=== PATIENT | female | born 1995 | race Caucasian/White ===

== ENCOUNTER 2016-05-17 21:01 | Inpatient (IN) | payer OTHER ==
[~2016-05-17] VITALS: Ht 149.9 cm; Wt 60.3 kg
[2016-05-17] MEDS ORDERED: MORPHINE SULFATE 4 MG/ML SYRINGE IVP ONE ×2 (21:30→23:15)
[2016-05-17] MEDS ORDERED: SODIUM CHLORIDE 0.9% 1,000 ML IV ONE (21:30)
[2016-05-17] MEDS ORDERED: ONDANSETRON HCL 4 MG/2 ML VIAL IVP ONE (21:30)
[2016-05-17] MEDS ORDERED: IOVERSOL 350 MG/ML 100 ML VIAL ONE (21:40)
[2016-05-17] MEDS ORDERED: SODIUM CHLORIDE 0.9% 100 ML ONE (21:40)
[2016-05-17 22:02] LABS: HEMATOCRIT 39.5 % (36-46); HEMOGLOBIN 13.4 g/dL (12.0-16.0); MEAN CORPUSCULAR HEMOGLOBIN 29.1 pg (26.0-34.0); MEAN CORPUSCULAR VOLUME 86 fL (80-100); PLATELET COUNT (AUTO) 257 K/uL (150-450); RED BLOOD CELL COUNT(AUTO) 4.61 MIL/uL (4.00-5.20); RED CELL DISTRIBUTION WIDTH 13.6 % (11.5-14.5); WHITE BLOOD COUNT (AUTO) 11.2 K/uL (4.5-11.0)
[2016-05-17 22:10] LABS: ANION GAP 12 mmol/L (8-16); CALCIUM, TOTAL 9.2 mg/dL (8.8-10.5); CARBON DIOXIDE 26 mmol/L (22-29); CHLORIDE 96 mmol/L (98-107); CREATININE 0.64 mg/dL (0.60-1.30); GLOMERULAR FILTR. RATE CALC > 60 mL/min (>60); POTASSIUM 3.1 mmol/L (3.5-5.1); SODIUM SERUM 134 mmol/L (136-145); UREA NITROGEN, BLOOD 9 mg/dL (7-18)
[2016-05-17 22:16] LABS: ALANINE AMINOTRANSFERASE 29 U/L (12-78); ALBUMIN 3.8 g/dL (3.4-5.0); ASPARTATE AMINOTRANSFERASE 17 U/L (15-37); BILIRUBIN,TOTAL 0.6 mg/dL (0.1-1.0); TOTAL PROTEIN, SERUM 7.6 g/dL (6.4-8.2)
[2016-05-17 22:31] LABS: BAND NEUTROPHILS % (MANUAL) 9 % (1-5); LYMPHOCYTES % (MANUAL) 7 % (22-44); TOTAL CELLS COUNTED 100
[2016-05-17 22:45] LABS: APPEARANCE,URINE CLEAR (CLEAR); GLUCOSE, URINE (UA) NEGATIVE (NEGATIVE); KETONES,URINE NEGATIVE (NEGATIVE); LEUKOCYTE ESTERASE ,URINE NEGATIVE (NEGATIVE); OCCULT BLOOD,URINE SMALL (NEGATIVE); PROTEIN,URINE NEGATIVE (NEGATIVE)
[2016-05-17 22:51] LABS: SQUAMOUS EPITHELIAL CELL,UR Moderate /LPF (None Seen)
[2016-05-17 22:54] LABS: RBC,URINE 0-2 /HPF (0-2)
[2016-05-18] MEDS ORDERED: AMPICILLIN SODIUM/SULBACTAM NA 3 GM in SODIUM CHLORIDE 0.9% 100 ML IV ONE ×2
[2016-05-18] MEDS ORDERED: ONDANSETRON HCL 4 MG/2 ML VIAL IVP ONE (00:22)
[2016-05-18] MEDS ORDERED: GLYCOPYRROLATE 0.2 MG/ML VIAL IM ONE (00:22)
[2016-05-18] MEDS ORDERED: METOCLOPRAMIDE HCL 5 MG/ML 2 ML VIAL IVP ONE (00:22)
[2016-05-18] MEDS ORDERED: ROCURONIUM BROMIDE 10 MG/ML 5 ML VIAL IVP ONE (00:22)
[2016-05-18] MEDS ORDERED: NEOSTIGMINE METHYLSULFATE 1 MG/ML 10 ML VIAL IVP ONE (00:22)
[2016-05-18] MEDS ORDERED: FentaNYL CITRATE-PF 100 MCG/2 ML VIAL IVP ONE (00:22)
[2016-05-18] MEDS ORDERED: LIDOCAINE HCL/PF 2% 5 ML VIAL IM ONE (00:22)
[2016-05-18] MEDS ORDERED: KETOROLAC TROMETHAMINE 60 MG/2 ML VIAL IM ONE (00:22)
[2016-05-18] MEDS ORDERED: PHENYLEPHRINE HCL 10 MG/ML VIAL IVP ONE (00:22)
[2016-05-18] MEDS ORDERED: MIDAZOLAM HCL 2 MG/2 ML VIAL IVP ONE (00:22)
[2016-05-18] MEDS ORDERED: DEXAMETHASONE SOD PHOS 4 MG/ML VIAL IVP ONE (00:22)
[2016-05-18] MEDS ORDERED: MORPHINE SULFATE 4 MG/ML SYRINGE IVP ONE (04:45)
[2016-05-18] MEDS ORDERED: ONDANSETRON HCL 4 MG/2 ML VIAL IVP PRN ×2 (06:30→10:15)
[2016-05-18] MEDS ORDERED: SODIUM CHLORIDE 0.9% 1,000 ML IV ONE ×2 (06:30→15:47)
[2016-05-18] MEDS: MORPHINE SULFATE 4 MG/ML SYRINGE IVP PRN ×2 (09:10→13:03)
[2016-05-18] MEDS ORDERED: IPRATROPIUM BROMIDE 0.5 MG/2.5 ML NEB SOLUTION NEB PRN (10:15)
[2016-05-18] MEDS ORDERED: ALBUTEROL SULFATE 2.5 MG/0.5 ML NEB SOLUTION NEB PRN (10:15)
[2016-05-18] MEDS ORDERED: MORPHINE SULFATE 4 MG/ML SYRINGE IVP PRN (10:15)
[2016-05-18] MEDS ORDERED: ZOLPIDEM TARTRATE 5 MG TABLET PO PRN (10:15)
[2016-05-18] MEDS ORDERED: HYDROCODONE/ACETAMINOPHEN 5-325 MG TABLET PO PRN (10:15)
[2016-05-18] MEDS ORDERED: MAGNESIUM HYDROXIDE SUSPENSION 30 ML UDCUP PO PRN (10:15)
[2016-05-18] MEDS ORDERED: ACETAMINOPHEN 325 MG TABLET PO PRN (10:15)
[2016-05-18] MEDS ORDERED: BISACODYL 10 MG RECTAL RECTAL SUPPOSITORY PR PRN (10:15)
[2016-05-18] MEDS ORDERED: RINGERS SOLUTION,LACTATED 1,000 ML IV ONE ×3 (14:25→16:04)
[2016-05-18] MEDS ORDERED: MEPERIDINE-PF 25 MG/ML SYRINGE IVP PRN (15:15)
[2016-05-18] MEDS ORDERED: FentaNYL CITRATE-PF 100 MCG/2 ML VIAL IVP PRN (15:15)
[2016-05-18] MEDS ORDERED: HYDROmorphone 2 MG/ML SYRINGE IVP PRN (15:15)
[2016-05-18] MEDS ORDERED: CefoTEtan DISOD 2 GM/DEXTROSE 50 ML IV ONE (15:25)
[2016-05-18] MEDS: BUPIVACAINE 0.25%/EPI 1:200,000/PF 10 ML VIAL ONE ×2 (15:40→15:49)
[2016-05-18] MEDS ORDERED: SODIUM CL IRRIG SOLN BAG 0 ML IRRIG ONE (15:46)
[2016-05-18] MEDS: POTASSIUM CHL 20 MEQ/D5-0.45NS 1,000 ML IV SCH (18:02)
[2016-05-18] MEDS: HEPARIN SODIUM,PORCINE 5,000 UNITS/ML VIAL SQ SCH (18:03)
[2016-05-18 19:50] VITALS: BP 97/55
[2016-05-18] MEDS ORDERED: OXYGEN THERAPY IH SCH (20:00)
[2016-05-18] MEDS: CefoTEtan DISOD 1 GM/DEXTROSE 50 ML IV SCH (20:09)
[2016-05-18] MEDS: DOCUSATE SODIUM 100 MG CAPSULE PO SCH (20:09)
[2016-05-18] MEDS ORDERED: DOCUSATE SODIUM 100 MG CAPSULE PO SCH (21:00)
[2016-05-18 23:30] VITALS: BP 90/57
[2016-05-19] MEDS: HEPARIN SODIUM,PORCINE 5,000 UNITS/ML VIAL SQ SCH ×4 (02:36→23:23)
[2016-05-19] MEDS: POTASSIUM CHL 20 MEQ/D5-0.45NS 1,000 ML IV SCH ×3 (02:36→21:21)
[2016-05-19] MEDS: HYDROCODONE/ACETAMINOPHEN 5-325 MG TABLET PO PRN ×3 (02:41→22:15)
[2016-05-19 05:09] VITALS: BP 92/59
[2016-05-19 07:22] VITALS: BP 92/57
[2016-05-19] MEDS: PANTOPRAZOLE SODIUM 40 MG/VIAL IVP SCH (07:57)
[2016-05-19] MEDS: DOCUSATE SODIUM 100 MG CAPSULE PO SCH ×2 (07:58→20:15)
[2016-05-19 08:21] LABS: HEMOGLOBIN 11.4 g/dL (12.0-16.0); MEAN CORPUSCULAR HGB CONC 34.6 G/dL (31.0-37.0); MEAN CORPUSCULAR VOLUME 87 fL (80-100); PLATELET COUNT (AUTO) 198 K/uL (150-450); RED CELL DISTRIBUTION WIDTH 13.9 % (11.5-14.5); WHITE BLOOD COUNT (AUTO) 9.3 K/uL (4.5-11.0)
[2016-05-19 08:33] LABS: ANION GAP 1 mmol/L (8-16); CALCIUM, TOTAL 8.3 mg/dL (8.8-10.5); CARBON DIOXIDE 32 mmol/L (22-29); CHLORIDE 103 mmol/L (98-107); CREATININE 0.67 mg/dL (0.60-1.30); GLOMERULAR FILTR. RATE CALC > 60 mL/min (>60); POTASSIUM 3.5 mmol/L (3.5-5.1); SODIUM SERUM 136 mmol/L (136-145); UREA NITROGEN, BLOOD 5 mg/dL (7-18)
[2016-05-19 08:52] LABS: BAND NEUTROPHILS % (MANUAL) 14 % (1-5); LYMPHOCYTES % (MANUAL) 7 % (22-44); TOTAL CELLS COUNTED 100
[2016-05-19] MEDS ORDERED: PANTOPRAZOLE SODIUM 40 MG/VIAL IVP SCH (09:00)
[2016-05-19 11:20] VITALS: BP 122/76
[2016-05-19] MEDS: MORPHINE SULFATE 4 MG/ML SYRINGE IVP PRN ×4 (11:32→23:23)
[2016-05-19] MEDS: CefoTEtan DISOD 1 GM/DEXTROSE 50 ML IV SCH ×2 (11:33→19:58)
[2016-05-19 15:25] VITALS: BP 122/79
[2016-05-19 19:40] VITALS: BP 113/74
[2016-05-19] MEDS: ONDANSETRON HCL 4 MG/2 ML VIAL IVP PRN (19:56)
[2016-05-19 23:36] VITALS: BP 114/77
[2016-05-20] VITALS (7 sets, daily range): BP systolic 113–151; BP diastolic 71–93
[2016-05-20] MEDS: MORPHINE SULFATE 4 MG/ML SYRINGE IVP PRN ×5 (05:42→20:12)
[2016-05-20] MEDS: CefoTEtan DISOD 1 GM/DEXTROSE 50 ML IV SCH ×2 (08:16→20:20)
[2016-05-20] MEDS: PANTOPRAZOLE SODIUM 40 MG/VIAL IVP SCH (08:17)
[2016-05-20] MEDS: DOCUSATE SODIUM 100 MG CAPSULE PO SCH ×2 (08:17→21:55)
[2016-05-20] MEDS: HEPARIN SODIUM,PORCINE 5,000 UNITS/ML VIAL SQ SCH ×3 (08:17→23:20)
[2016-05-20] MEDS: ONDANSETRON HCL 4 MG/2 ML VIAL IVP PRN ×2 (08:19→20:12)
[2016-05-20 09:00] LABS: EOSINOPHILS # (AUTO) 0.04 K/uL (0.00-0.70); HEMATOCRIT 34.5 % (36-46); HEMOGLOBIN 12.1 g/dL (12.0-16.0); LYMPHOCYTES # (AUTO) 0.8 K/uL (1.0-4.8); LYMPHOCYTES % (AUTO) 8.9 % (22.0-44.0); MEAN CORPUSCULAR HEMOGLOBIN 29.9 pg (26.0-34.0); MEAN CORPUSCULAR VOLUME 85 fL (80-100); MONOCYTES # (AUTO) 0.5 K/uL (0.1-1.0); MONOCYTES % (AUTO) 5.8 % (2.0-9.0); NEUTROPHILS # (AUTO) 7.7 K/uL (1.8-7.7); NEUTROPHILS % (AUTO) 84.9 % (40.0-70.0); PLATELET COUNT (AUTO) 235 K/uL (150-450); RED BLOOD CELL COUNT(AUTO) 4.04 MIL/uL (4.00-5.20); RED CELL DISTRIBUTION WIDTH 13.5 % (11.5-14.5)
[2016-05-20 09:13] LABS: ANION GAP 5 mmol/L (8-16); CALCIUM, TOTAL 8.2 mg/dL (8.8-10.5); CARBON DIOXIDE 28 mmol/L (22-29); CHLORIDE 99 mmol/L (98-107); GLOMERULAR FILTR. RATE CALC > 60 mL/min (>60); POTASSIUM 3.3 mmol/L (3.5-5.1); SODIUM SERUM 132 mmol/L (136-145); UREA NITROGEN, BLOOD 4 mg/dL (7-18)
[2016-05-20] MEDS: POTASSIUM CHL 20 MEQ/D5-0.45NS 1,000 ML IV SCH ×2 (09:56→23:18)
[2016-05-20] MEDS ORDERED: POTASSIUM CHL 10 MEQ/WATER 50 ML IV PRN (11:15)
[2016-05-20] MEDS ORDERED: POTASSIUM CHLORIDE 20 MEQ ER TABLET PO PRN (11:15)
[2016-05-21] MEDS: MORPHINE SULFATE 4 MG/ML SYRINGE IVP PRN ×5 (01:18→19:50)
[2016-05-21 05:01] VITALS: BP 107/77
[2016-05-21] MEDS: ONDANSETRON HCL 4 MG/2 ML VIAL IVP PRN ×2 (06:49→14:31)
[2016-05-21 07:18] VITALS: BP 128/86
[2016-05-21] MEDS: HEPARIN SODIUM,PORCINE 5,000 UNITS/ML VIAL SQ SCH ×3 (08:24→23:58)
[2016-05-21] MEDS: CefoTEtan DISOD 1 GM/DEXTROSE 50 ML IV SCH ×2 (08:24→20:25)
[2016-05-21] MEDS: PANTOPRAZOLE SODIUM 40 MG/VIAL IVP SCH (10:33)
[2016-05-21] MEDS: DOCUSATE SODIUM 100 MG CAPSULE PO SCH ×2 (10:33→20:25)
[2016-05-21] MEDS: POTASSIUM CHL 20 MEQ/D5-0.45NS 1,000 ML IV SCH ×2 (10:38→21:07)
[2016-05-21] MEDS ORDERED: BISACODYL 10 MG RECTAL RECTAL SUPPOSITORY PR ONE (10:45)
[2016-05-21 11:08] VITALS: BP 114/83
[2016-05-21 14:54] VITALS: BP 118/76
[2016-05-21] MEDS: HYDROCODONE/ACETAMINOPHEN 5-325 MG TABLET PO PRN (18:22)
[2016-05-21 19:18] VITALS: BP 132/89
[2016-05-21 23:57] VITALS: BP 111/72
[2016-05-22 04:42] VITALS: BP 115/83
[2016-05-22] MEDS: CefoTEtan DISOD 1 GM/DEXTROSE 50 ML IV SCH ×2 (08:13→20:29)
[2016-05-22] MEDS: DOCUSATE SODIUM 100 MG CAPSULE PO SCH ×2 (08:13→20:29)
[2016-05-22] MEDS: PANTOPRAZOLE SODIUM 40 MG/VIAL IVP SCH (08:13)
[2016-05-22] MEDS: HEPARIN SODIUM,PORCINE 5,000 UNITS/ML VIAL SQ SCH ×3 (08:15→23:53)
[2016-05-22] MEDS: HYDROCODONE/ACETAMINOPHEN 5-325 MG TABLET PO PRN ×4 (08:18→21:21)
[2016-05-22] MEDS: ONDANSETRON HCL 4 MG/2 ML VIAL IVP PRN (08:18)
[2016-05-22] MEDS: POTASSIUM CHL 20 MEQ/D5-0.45NS 1,000 ML IV SCH ×2 (08:18→18:41)
[2016-05-22 08:21] VITALS: BP 136/90
[2016-05-22 11:33] VITALS: BP 129/102
[2016-05-22 15:30] VITALS: BP 123/58
[2016-05-22 19:34] VITALS: BP 124/92
[2016-05-22 23:31] VITALS: BP 114/78
[2016-05-23] MEDS: HYDROCODONE/ACETAMINOPHEN 5-325 MG TABLET PO PRN ×2 (03:55→15:59)
[2016-05-23 04:40] VITALS: BP 127/88
[2016-05-23] MEDS: POTASSIUM CHL 20 MEQ/D5-0.45NS 1,000 ML IV SCH (05:10)
[2016-05-23 07:39] VITALS: BP 129/93
[2016-05-23 07:43] LABS: BASOPHILS % (AUTO) 0.1 % (0.0-2.0); EOSINOPHILS % (AUTO) 1.1 % (1.0-6.0); HEMATOCRIT 36.1 % (36-46); HEMOGLOBIN 12.2 g/dL (12.0-16.0); LYMPHOCYTES # (AUTO) 1.7 K/uL (1.0-4.8); LYMPHOCYTES % (AUTO) 16.9 % (22.0-44.0); MEAN CORPUSCULAR HGB CONC 33.6 G/dL (31.0-37.0); MEAN CORPUSCULAR VOLUME 86 fL (80-100); MONOCYTES # (AUTO) 0.7 K/uL (0.1-1.0); MONOCYTES % (AUTO) 6.7 % (2.0-9.0); NEUTROPHILS # (AUTO) 7.4 K/uL (1.8-7.7); NEUTROPHILS % (AUTO) 75.2 % (40.0-70.0); PLATELET COUNT (AUTO) 337 K/uL (150-450); RED BLOOD CELL COUNT(AUTO) 4.19 MIL/uL (4.00-5.20); RED CELL DISTRIBUTION WIDTH 13.7 % (11.5-14.5); WHITE BLOOD COUNT (AUTO) 9.8 K/uL (4.5-11.0)
[2016-05-23 07:59] LABS: ANION GAP 8 mmol/L (8-16); CALCIUM, TOTAL 8.7 mg/dL (8.8-10.5); CARBON DIOXIDE 27 mmol/L (22-29); CHLORIDE 100 mmol/L (98-107); CREATININE 0.67 mg/dL (0.60-1.30); GLOMERULAR FILTR. RATE CALC > 60 mL/min (>60); POTASSIUM 3.7 mmol/L (3.5-5.1); SODIUM SERUM 135 mmol/L (136-145); UREA NITROGEN, BLOOD 4 mg/dL (7-18)
[2016-05-23 08:05] LABS: ALANINE AMINOTRANSFERASE 20 U/L (12-78); ALBUMIN 2.6 g/dL (3.4-5.0); ASPARTATE AMINOTRANSFERASE 14 U/L (15-37); TOTAL PROTEIN, SERUM 6.5 g/dL (6.4-8.2)
[2016-05-23 08:21] LABS: BILIRUBIN,TOTAL < 0.1 mg/dL (0.1-1.0)
[2016-05-23] MEDS: DOCUSATE SODIUM 100 MG CAPSULE PO SCH (08:29)
[2016-05-23] MEDS: PANTOPRAZOLE SODIUM 40 MG/VIAL IVP SCH (08:29)
[2016-05-23] MEDS: CefoTEtan DISOD 1 GM/DEXTROSE 50 ML IV SCH (08:29)
[2016-05-23] MEDS: HEPARIN SODIUM,PORCINE 5,000 UNITS/ML VIAL SQ SCH ×2 (08:29→15:59)
[2016-05-23 11:58] VITALS: BP 125/95
[2016-05-23 15:46] VITALS: BP 127/93
[2016-05-23] MEDS ORDERED: AMOX1TAB16 PO (18:15)
[2016-05-23] MEDS ORDERED: HYDR-3965 PO ×2 (18:15→18:16)
[2016-05-23] MEDS ORDERED: DSS100 PO (18:16)
== END 2016-05-23 18:50 | disposition home or self-care (01) | DRG 710 ==
LOC: EMS 21:02 → 6N 05-18 08:01
PROVIDERS: ADMIT Hospitalist; ATTEND Hospitalist
PROC: 0DTJ4ZZ Resection of Appendix, Percutaneous Endoscopic Approach (ICD-10-PCS; principal; 2016-05-18 15:40)
DX: A41.9 Sepsis, unspecified organism (principal); K35.2 Acute appendicitis with generalized peritonitis; E87.6 Hypokalemia; R00.0 Tachycardia, unspecified; D64.9 Anemia, unspecified; Z83.3 Family history of diabetes mellitus; K56.7 Ileus, unspecified
CPT/HCPCS: 74177; 84132; 88304; 96361; 96365; 96375; 96376; 99285; C9113; J0295; J1100; J1644; J1885; J2250; J2270; J2370; J2405; J2765; J3010; J3480; J3490; J7030; J7050; J7120

== ENCOUNTER 2017-06-08 01:38 | Emergency (ER) | payer OTHER ==
[~2017-06-08] VITALS: Ht 149.9 cm; Wt 56.8 kg
[~2017-06-08 01:38] MED LIST: AMOX1TAB16 PO; DSS100 PO; HYDR-4061 PO
[2017-06-08 03:19] VITALS: BP 124/77
== END 2017-06-08 03:26 | disposition home or self-care (01) ==
LOC: EMS 01:39
DX: S93.401A Sprain of unspecified ligament of right ankle, initial encounter (principal); W01.0XXA Fall on same level from slipping, tripping and stumbling without subsequent striking against object, initial encounter; Y93.89 Activity, other specified; Y92.89 Other specified places as the place of occurrence of the external cause; Y99.8 Other external cause status
CPT/HCPCS: 29515; 99284

== ENCOUNTER 2017-06-18 23:13 | Emergency (ER) | payer OTHER ==
[~2017-06-18] VITALS: Ht 149.9 cm; Wt 59.1 kg
[2017-06-19 00:07] VITALS: BP 129/99
== END 2017-06-19 00:12 | disposition home or self-care (01) ==
LOC: EMS 23:14
DX: S20.212A Contusion of left front wall of thorax, initial encounter (principal); W18.49XA Other slipping, tripping and stumbling without falling, initial encounter; Y93.39 Activity, other involving climbing, rappelling and jumping off; Y92.89 Other specified places as the place of occurrence of the external cause; Y99.8 Other external cause status
CPT/HCPCS: 71046; 99284

== ENCOUNTER 2018-08-24 13:37 | Emergency (ER) | payer OTHER ==
[~2018-08-24] VITALS: Ht 149.9 cm; Wt 65.9 kg
[2018-08-24] MEDS ORDERED: ACETAMINOPHEN 500 MG TABLET PO ONE (14:30)
[2018-08-24] MEDS ORDERED: BENZOCAINE/MENTHOL LOZENGE PO ONE (14:30)
[2018-08-24 16:10] VITALS: BP 127/83
== END 2018-08-24 16:29 | disposition home or self-care (01) ==
LOC: EMS 13:37
DX: J02.0 Streptococcal pharyngitis (principal); M54.2 Cervicalgia; R07.89 Other chest pain; R06.02 Shortness of breath; R51 Headache
CPT/HCPCS: 87430; 93005

== ENCOUNTER 2021-02-23 10:56 | Emergency (ER) | payer OTHER ==
[~2021-02-23] VITALS: Ht 147.3 cm; Wt 72.7 kg
[2021-02-23] MEDS ORDERED: OXYMETAZOLINE HCL 0.05% 15 ML NASAL SPRAY NASAL ONE (11:45)
[2021-02-23 12:27] VITALS: BP 132/84
== END 2021-02-23 13:41 | disposition home or self-care (01) ==
LOC: EMS 11:00
DX: J01.90 Acute sinusitis, unspecified (principal)
CPT/HCPCS: 99283

== ENCOUNTER 2021-11-13 10:48 | Emergency (ER) | payer OTHER ==
[~2021-11-13] VITALS: Ht 152.4 cm; Wt 77.3 kg
[2021-11-13 11:52] LABS: BASOPHILS % (AUTO) 0.4 % (0.0-2.0); EOSINOPHILS % (AUTO) 1.3 % (1.0-6.0); HEMATOCRIT 38.3 % (36-46); HEMOGLOBIN 12.9 g/dL (12.0-16.0); LYMPHOCYTES # (AUTO) 2.7 K/uL (1.0-4.8); LYMPHOCYTES % (AUTO) 28.8 % (22.0-44.0); MEAN CORPUSCULAR HEMOGLOBIN 28.4 pg (26.0-34.0); MEAN CORPUSCULAR HGB CONC 33.7 G/dL (31.0-37.0); MEAN CORPUSCULAR VOLUME 85 fL (80-100); MONOCYTES # (AUTO) 0.4 K/uL (0.1-1.0); MONOCYTES % (AUTO) 4.6 % (2.0-9.0); NEUTROPHILS # (AUTO) 6.2 K/uL (1.8-7.7); NEUTROPHILS % (AUTO) 64.9 % (40.0-70.0); PLATELET COUNT (AUTO) 266 K/uL (150-450); RED BLOOD CELL COUNT(AUTO) 4.54 MIL/uL (4.00-5.20); RED CELL DISTRIBUTION WIDTH 13.5 % (11.5-14.5)
[2021-11-13 12:00] LABS: ANION GAP 10 mmol/L (8-16); CALCIUM, TOTAL 8.9 mg/dL (8.8-10.5); CARBON DIOXIDE 24 mmol/L (22-29); CHLORIDE 102 mmol/L (98-107); CREATININE 0.57 mg/dL (0.60-1.30); GLUCOSE,RANDOM 95 mg/dL (70-110); SODIUM SERUM 136 mmol/L (136-145); UREA NITROGEN, BLOOD 17 mg/dL (7-18)
[2021-11-13 12:06] LABS: GLOMERULAR FILTR. RATE CALC > 60 mL/min (>60)
[2021-11-13 12:08] LABS: D-DIMER 0.27 mg/L FEU (0.00-0.50); PROTHROMBIN TIME 10.3 SEC (9.4-11.6)
[2021-11-13 12:10] LABS: ALANINE AMINOTRANSFERASE 79 U/L (12-78); ALBUMIN 3.9 g/dL (3.4-5.0); ALKALINE PHOSPHATASE 105 U/L (46-116); ASPARTATE AMINOTRANSFERASE 35 U/L (15-37); BILIRUBIN,TOTAL 0.2 mg/dL (0.1-1.0); TOTAL PROTEIN, SERUM 7.8 g/dL (6.4-8.2)
[2021-11-13 12:26] VITALS: BP 125/85
[2021-11-13 12:26] LABS: COVID AG,FIA SOURCE NASAL SWAB
== END 2021-11-13 13:23 | disposition home or self-care (01) ==
LOC: EMS 10:48
DX: R07.81 Pleurodynia (principal); R09.81 Nasal congestion; J34.89 Other specified disorders of nose and nasal sinuses; R68.83 Chills (without fever); Z98.890 Other specified postprocedural states; Z20.822 Contact with and (suspected) exposure to COVID-19
CPT/HCPCS: 71045; 80053; 84484; 85025; 85379; 85610; 85730; 93005; 99285; 36415-L1; 36415-TC

== ENCOUNTER 2022-08-18 08:12 | Emergency (ER) | payer OTHER ==
[~2022-08-18] VITALS: Ht 154.9 cm; Wt 86.4 kg
[2022-08-18 08:15] VITALS: BP 143/99
[2022-08-18 08:56] LABS: APPEARANCE,URINE CLEAR (CLEAR); BILIRUBIN,URINE NEGATIVE (NEGATIVE); GLUCOSE, URINE (UA) NEGATIVE (NEGATIVE); KETONES,URINE NEGATIVE (NEGATIVE); LEUKOCYTE ESTERASE ,URINE NEGATIVE (NEGATIVE); NITRATE,URINE NEGATIVE (NEGATIVE); OCCULT BLOOD,URINE NEGATIVE (NEGATIVE); PH,URINE 5.5 (5.0-8.0); PROTEIN,URINE NEGATIVE (NEGATIVE); SPECIFIC GRAVITIY, URINE 1.011 (1.003-1.030); UROBILINOGEN,URINE <=1.0 mg/dL (<=1.0)
[2022-08-18] MEDS ORDERED: LIDOCAINE 5% TRANSDERMAL PATCH TD ONE (09:45)
[2022-08-18] MEDS ORDERED: IBUPROFEN 600 MG TABLET PO ONE (09:45)
[2022-08-18] MEDS ORDERED: LIDO1ADH83 TP (10:04)
== END 2022-08-18 10:23 | disposition home or self-care (01) ==
LOC: EMS 08:12
DX: M54.50 Low back pain, unspecified (principal); R49.1 Aphonia; Z90.49 Acquired absence of other specified parts of digestive tract
CPT/HCPCS: 81003; 84703; 99283

== ENCOUNTER 2023-10-20 13:27 | Emergency (ER) | payer OTHER ==
[~2023-10-20] VITALS: Ht 152.4 cm; Wt 78.2 kg
[~2023-10-20 13:27] MED LIST changes: -AMOX1TAB16 PO; -DSS100 PO; -HYDR-4061 PO; +LIDO1ADH83 TP
[2023-10-20 13:37] VITALS: TEMP 98.2
[2023-10-20] MEDS ORDERED: MONT-47 PO (13:39)
[2023-10-20] MEDS ORDERED: OFLO5DRO4 AD (15:15)
[2023-10-20] MEDS ORDERED: TRAM50TA5 PO (15:16)
[2023-10-20] MEDS: TraMADol HCL 50 MG TABLET PO ONE (15:22)
[2023-10-20 15:30] VITALS: BP 118/71; PULSE 65; RESP 16
== END 2023-10-20 15:33 | disposition home or self-care (01) ==
LOC: EMS 13:28
DX: T70.29XA Other effects of high altitude, initial encounter (principal); H72.91 Unspecified perforation of tympanic membrane, right ear; X58.XXXA Exposure to other specified factors, initial encounter
CPT/HCPCS: 99283